=== PATIENT | male | born 1965 | race Two or more races ===

== ENCOUNTER 2023-08-12 16:26 | Emergency (ER) | payer OTHER ==
[~2023-08-12] VITALS: Ht 172.7 cm; Wt 89.8 kg
[2023-08-12] MEDS ORDERED: ATIVAN1 M1 PO (17:36)
[2023-08-12] MEDS ORDERED: CARVEDILOL6.25 MG (17:36)
[2023-08-12] MEDS ORDERED: ZOLOFT100 MG (17:37)
[2023-08-12] MEDS ORDERED: cloNIDine HCL 0.2 MG TABLET PO ONE (18:00)
== END 2023-08-12 19:11 | disposition home or self-care (01) ==
LOC: ER 16:26
DX: K62.5 Hemorrhage of anus and rectum (principal); I10 Essential (primary) hypertension; Z88.9 Allergy status to unspecified drugs, medicaments and biological substances